=== PATIENT | female | born 1965 | race Caucasian/White ===

== ENCOUNTER 2018-06-03 17:13 | Emergency (ER) | payer MEDICARE, MEDICAID ==
[~2018-06-03] VITALS: Ht 157.5 cm; Wt 78.0 kg
[2018-06-03] MEDS ORDERED: ROBAXIN 750 MG750 M1 PO (19:12)
[2018-06-03 19:15] VITALS: BP 124/81
== END 2018-06-03 19:28 | disposition home or self-care (01) ==
LOC: M.ERS 17:13
DX: M79.604 Pain in right leg (principal); I10 Essential (primary) hypertension; E78.00 Pure hypercholesterolemia, unspecified

== ENCOUNTER 2018-10-18 09:29 | Emergency (ER) | payer MEDICARE, MEDICAID ==
[~2018-10-18] VITALS: Ht 157.5 cm; Wt 78.6 kg
[~2018-10-18 09:29] MED LIST: ROBAXIN 750 MG750 M1 PO
[2018-10-18] MEDS ORDERED: BLOOD PRESSURE MED (09:36)
[2018-10-18 10:06] LABS: ABSOLUTE BASOPHILS 0.1 thou/uL (0.0-0.2); ABSOLUTE EOSINOPHILS 0.2 thou/uL (0.0-0.7); ABSOLUTE LYMPHOCYTES 2.3 thou/uL (0.8-5.3); ABSOLUTE MONOCYTES 0.6 thou/uL (0.0-1.2); ABSOLUTE NEUTROPHILS 3.5 thou/uL (1.6-8.1); BASOPHILS 1.3 %; EOSINOPHILS 2.3 %; HEMATOCRIT 39.3 % (37.0-47.0); HEMOGLOBIN 13.5 gm/dL (12.0-15.0); LYMPHOCYTES 35.4 %; MCHC 34.3 g/dL (28.0-37.0); MCV 87.7 fL (80.0-100.0); MPV 8.7 fl. (7.2-11.1); NUCLEATED RBCS 0 /100WBC; PLATELET COUNT* 269 thou/uL (150-400); RBC 4.48 mil/uL (4.20-5.00); RDW-CV 13.2 % (10.5-14.5); WBC 6.6 thou/uL (4.0-11.0)
[2018-10-18 10:14] LABS: CALCIUM 9.4 mg/dL (8.5-10.1); CREATININE 0.7 mg/dL (0.6-1.3); POTASSIUM 3.7 mmol/L (3.5-5.1)
[2018-10-18 10:18] LABS: ALBUMIN 3.9 g/dL (3.4-5.0); TOTAL BILIRUBIN 0.4 mg/dL (<0.1-1.0); TOTAL PROTEIN 7.1 g/dL (6.4-8.2)
[2018-10-18] MEDS ORDERED: NORCO 5-325 TA1 EACH PO ×2 (10:42→13:34)
[2018-10-18 10:49] LABS: URINE BILIRUBIN NEGATIVE (Negative); URINE BLOOD 3+ (Negative); URINE CLARITY CLEAR; URINE COLOR YELLOW; URINE GLUCOSE-RANDOM 1+ (Negative); URINE KETONES NEGATIVE (Negative); URINE LEUKOCYTES-REFLEX NEGATIVE (Negative); URINE NITRITE-REFLEX NEGATIVE (Negative); URINE PROTEIN NEGATIVE (Negative); URINE UROBILINOGEN 0.2 E.U./dl (0.2-1.0)
[2018-10-18 10:56] LABS: BACTERIA-REFLEX 1-9 Few /HPF (None Seen); CASTS None Seen /LPF (None Seen); CRYSTALS None Seen /LPF (None Seen); MUCUS 0-3 Light strn/LPF (None Seen); SQUAMOUS 0-3 Few /LPF (0-3); URINE WBC-REFLEX 0-5 Rare /HPF (0-5)
[2018-10-18] MEDS ORDERED: ZOFRAN ODT4 MG PO (12:05)
[2018-10-18] MEDS ORDERED: TORADOL 10 MG T10 MG PO (12:05)
[2018-10-18] MEDS ORDERED: FLOMAX0.4 MG PO (12:05)
[2018-10-18 12:38] VITALS: BP 125/56
== END 2018-10-18 12:39 | disposition home or self-care (01) ==
LOC: M.ERS 09:29
PROVIDERS: Personal Emergency Response Attendant
DX: N13.2 Hydronephrosis with renal and ureteral calculous obstruction (principal); I10 Essential (primary) hypertension; E78.00 Pure hypercholesterolemia, unspecified; Z90.49 Acquired absence of other specified parts of digestive tract

== ENCOUNTER 2018-10-28 14:03 | Inpatient (IN) | payer MEDICARE, MEDICAID ==
[~2018-10-28] VITALS: Ht 165.1 cm; Wt 95.3 kg
--- NOTE | ~2018-10-28 | OP ---
[address] [address] OPERATIVE REPORT Name: IVETT LEVI Room: [address] IN .R.#: [id number] Admission: 10/28/18 Attend Phys: Ric August MD Discharge: Date of : 61 Report #: [id number] THIS REPORT FOR: //name// CC: Ric Acosta DATE OF SERVICE: 10/30/2018 PREOPERATIVE DIAGNOSIS: Left ureteral stone with hydronephrosis. POSTOPERATIVE DIAGNOSIS: Left ureteral stone with hydronephrosis. PROCEDURE PERFORMED: Cystoscopy, left retrograde pyelogram, ureteroscopy with laser lithotripsy and stent placement. SURGEON: Ramin Miguel MD ANESTHESIA: General. ESTIMATED BLOOD LOSS: Minimal. COMPLICATIONS: None. INDICATION FOR PROCEDURE: This is a 53-year-old female with a known left distal ureteral stone that she has been unable to pass over the past couple of weeks. She was scheduled with my partner to have ureteroscopy, laser lithotripsy and stent tomorrow; however, she has been having severe pain that is poorly controlled with narcotics and after discussing her options, she has elected to proceed with left ureteroscopy, laser lithotripsy and stent placement as soon as possible. The risks, benefits, possible complications were explained in detail to both she and her family, they had a chance to ask questions, which were answered to her satisfaction. They voiced clear understanding and would like to proceed. DESCRIPTION OF PROCEDURE: After obtaining informed consent, the patient was taken to the Operating Room and placed in supine position. After adequate general anesthesia and IV antibiotics, she was prepped and draped in the dorsal lithotomy position. A 21-Canadian cystoscope with 30-degree lens was introduced in the bladder. The bladder was systematically inspected. There were no stones, tumors, diverticula. The left ureteral orifice was cannulated with a 5-Canadian open-ended ureteral catheter. On book store associate imaging, there was no evidence of any stones overlying the left ureter; however, there was a large pelvic calcification consistent with a phlebolith. On retrograde, there was a normal caliber ureter for about 3 cm, at which point there was a small filling defect measuring about 4-5 mm and moderate proximal hydroureter. A sensor guidewire was passed in retrograde fashion. A rigid ureteroscopy [place] [address] OPERATIVE REPORT Name: IVETT LEVI Room: [address]#: [id number] Admission: 10/28/18 Attend Phys: Ric August MD Discharge: Date of : 61 Report #: [id number] alongside the wire into the distal ureter where the stone was identified. Using a 365 micron holmium laser fiber, stone was fragmented in multiple tiny fragments. The larger fragments were basketed and retrieved atraumatically through the ureter and passed off the table and sent to the lab for stone analysis. The ureter was examined up to the mid ureter with the rigid scope. There was no evidence of any other stones. No evidence of any ureteral injury. The scope was removed and a 4.8 x 28 cm double-J ureteral stent was passed over the wire under fluoroscopic guidance. A good coil was noted overlying the renal pelvis under fluoroscopy and a good coil was directly visualized in the bladder. The bladder was drained. Uro-Jet was applied per urethra and a B and O suppository was placed per rectum. The patient was extubated and taken to Recovery Room in good condition. The plan is to follow up in 1-2 weeks for stent removal. She may be dismissed home when stable from the hospitalist standpoint. By: [id number] [id number] Miguel MD /cruz
[~2018-10-28 14:03] MED LIST changes: +BLOOD PRESSURE MED; +FLOMAX0.4 MG PO; +NORCO 5-325 TA1 EACH PO; +TORADOL 10 MG T10 MG PO; +ZOFRAN ODT4 MG PO
[2018-10-28 14:21] VITALS: BP 136/71
[2018-10-28] MEDS ORDERED: ASPIR 8181 MG PO (14:36)
[2018-10-28] MEDS ORDERED: COZAAR 25 MG TA25 M2 PO (14:36)
[2018-10-28] MEDS ORDERED: DILTIAZEM 24HR180 M3 PO (14:36)
[2018-10-28] MEDS ORDERED: ISOSORBIDE MONO30 M1 PO (14:36)
[2018-10-28] MEDS ORDERED: LIPITOR40 MG PO (14:37)
[2018-10-28 14:54] LABS: ABSOLUTE BASOPHILS 0.1 thou/uL (0.0-0.2); ABSOLUTE EOSINOPHILS 0.1 thou/uL (0.0-0.7); ABSOLUTE LYMPHOCYTES 1.7 thou/uL (0.8-5.3); ABSOLUTE MONOCYTES 0.8 thou/uL (0.0-1.2); ABSOLUTE NEUTROPHILS 8.5 thou/uL (1.6-8.1); BASOPHILS 0.6 %; EOSINOPHILS 0.8 %; HEMATOCRIT 40.3 % (37.0-47.0); HEMOGLOBIN 13.6 gm/dL (12.0-15.0); LYMPHOCYTES 15.4 %; MCH 29.6 pg (26.0-34.0); MCHC 33.8 g/dL (28.0-37.0); MCV 87.5 fL (80.0-100.0); MONOCYTES 7.4 %; MPV 8.8 fl. (7.2-11.1); NUCLEATED RBCS 0 /100WBC; PLATELET COUNT* 258 thou/uL (150-400); POLYS 75.8 %; RBC 4.61 mil/uL (4.20-5.00); RDW-CV 13.9 % (10.5-14.5); WBC 11.2 thou/uL (4.0-11.0)
[2018-10-28 15:11] LABS: ALBUMIN 4.3 g/dL (3.4-5.0); ALKALINE PHOSPHATASE 81 U/L (46-116); ANION GAP 8 mmol/L (7-16); BUN 21 mg/dL (7-18); CALCIUM 9.7 mg/dL (8.5-10.1); CHLORIDE 101 mmol/L (98-107); CO2 30 mmol/L (21-32); CREATININE 0.8 mg/dL (0.6-1.3); GLUCOSE 115 mg/dL (70-99); POTASSIUM 4.1 mmol/L (3.5-5.1); SGOT 25 U/L (15-37); SGPT 35 U/L (30-65); SODIUM 139 mmol/L (136-145); TOTAL BILIRUBIN 0.5 mg/dL (<0.1-1.0); TOTAL PROTEIN 7.8 g/dL (6.4-8.2); TROPONIN-I LEVEL <0.06 ng/mL (<0.06)
[2018-10-28 16:01] LABS: URINE BILIRUBIN NEGATIVE (Negative); URINE BLOOD NEGATIVE (Negative); URINE CLARITY CLEAR; URINE COLOR YELLOW; URINE GLUCOSE-RANDOM NEGATIVE (Negative); URINE KETONES 1+ (Negative); URINE LEUKOCYTES-REFLEX NEGATIVE (Negative); URINE NITRITE-REFLEX NEGATIVE (Negative); URINE PROTEIN NEGATIVE (Negative); URINE SPECIFIC GRAVITY 1.025 (1.005-1.030); URINE UROBILINOGEN 0.2 E.U./dl (0.2-1.0)
[2018-10-28 20:08] VITALS: BP 126/84
[2018-10-28 21:00] VITALS: BP 106/56
[2018-10-29 05:27] LABS: ABSOLUTE EOSINOPHILS 0.1 thou/uL (0.0-0.7); ABSOLUTE LYMPHOCYTES 1.5 thou/uL (0.8-5.3); ABSOLUTE MONOCYTES 0.7 thou/uL (0.0-1.2); ABSOLUTE NEUTROPHILS 4.6 thou/uL (1.6-8.1); BASOPHILS 0.3 %; EOSINOPHILS 1.8 %; HEMATOCRIT 37.1 % (37.0-47.0); HEMOGLOBIN 12.5 gm/dL (12.0-15.0); LYMPHOCYTES 21.3 %; MCH 29.9 pg (26.0-34.0); MCHC 33.8 g/dL (28.0-37.0); MCV 88.4 fL (80.0-100.0); MONOCYTES 10.6 %; MPV 8.9 fl. (7.2-11.1); NUCLEATED RBCS 0 /100WBC; PLATELET COUNT* 220 thou/uL (150-400); RDW-CV 13.4 % (10.5-14.5)
[2018-10-29 05:41] LABS: CALCIUM 8.9 mg/dL (8.5-10.1); CREATININE 0.9 mg/dL (0.6-1.3); POTASSIUM 4.2 mmol/L (3.5-5.1)
--- NOTE | 2018-10-29 06:00 | NUR ---
PATIENT ADMITTED TO ROOM 308 AT APPROXIMATELY 2014. VSS ON RA. PAIN CONTROLLED WITH IV PAIN MEDICATION AND CHARTED. PATIENT ORIENTED TO ROOM AND POLICIES AND FALL EDUCATION GIVEN AND FALL AGREEMENT SIGNED. PATIENT VERBALIZED UNDERSTANDING. ADMISSION ASSESSMENT CHARTED. IV FLUIDS STARTED. IV IN LEFT AC-NS @100ML/HR. AT BEDSIDE. SEIZURE PRECAUTIONS IN PLACE AND FALL PRECAUTIONS IN PLACE. PATIENT INSTRUCTED TO USE CALL LIGHT WHEN NEEDING ASSISTANE. HOURLY ROUNDS MADE. WILL CONTINUE WITH PLAN OF CARE AND NURSING TO MONITOR.
[2018-10-29 07:20] VITALS: BP 125/70
[2018-10-29 17:13] VITALS: BP 103/40
--- NOTE | 2018-10-29 17:33 | NUR ---
ASSUMED CARE OF PATIENT AT APPROX 0730. ALERT AND ORIENTED X4. ASSESSMENT COMPLETED AND CHARTED. VSS ON ROOM AIR. NO COMPLAINTS OF NAUSEA OR SOA. PAIN HAS BEEN MANAGED WITH IV TORADOL AND HYDROCODONE THIS SHIFT. FLUIDS INFUSED ORDERED. PATIENT UP WITH SBA. HOURLY ROUNDS COMPLETED. CALL LIGHT WITHIN REACH. NURSING WILL CONTINUE TO MONITOR.
[2018-10-29 20:00] VITALS: BP 112/62
[2018-10-30 04:10] LABS: HEMATOCRIT 32.2 % (37.0-47.0); HEMOGLOBIN 10.9 gm/dL (12.0-15.0); MCHC 33.9 g/dL (28.0-37.0); MCV 88.7 fL (80.0-100.0); MPV 9.1 fl. (7.2-11.1); RBC 3.63 mil/uL (4.20-5.00); RDW-CV 13.7 % (10.5-14.5); WBC 5.6 thou/uL (4.0-11.0)
--- NOTE | 2018-10-30 04:30 | NUR ---
PT REMAINED A&Ox4 THROUGHOUT SHIFT. VITALS STABLE. NPO SINCE MIDNIGHT. PAIN CONTROLLED WITH NORCO AND TORADOL. IV IN L AC PATENT, INFUSING. URINE STRAINED, NO STONES FOUND. SEIZURE PRECAUTIONS IN PLACE. HOURLY ROUNDING COMPLETE. CALL LIGHT WITHIN REACH. WILL CONTINUE TO MONITOR.
[2018-10-30 04:33] LABS: CALCIUM 8.3 mg/dL (8.5-10.1); CREATININE 0.6 mg/dL (0.6-1.3); POTASSIUM 4.1 mmol/L (3.5-5.1)
[2018-10-30 08:30] VITALS: BP 116/78
[2018-10-30 08:40] VITALS: BP 116/78
--- NOTE | 2018-10-30 14:55 | CON ---
[address] [address] CONSULTATION Name: IVETT LEVI Room: [address] IN .R.#: [id number] Admission: 10/28/18 Attend Phys: Ric August MD Discharge: Date of : 61 Report #: [id number] THIS REPORT FOR: //name// CC: Ric Acosta DATE OF SERVICE: 10/29/2018 REASON FOR CONSULTATION: Left distal ureteral stone and flank pain. REFERRING PHYSICIAN: Ric August MD. CONSULTING PHYSICIAN: Ramin Miguel MD. HISTORY OF PRESENT ILLNESS: This is a 53-year-old female with a 2-week history of with left flank pain, severe at times, 10/10 on the pain scale. She has had some associated nausea and chills, but no fever. No diarrhea. She does have a history of kidney stones that she has passed spontaneously. She saw my partner, Dr. Hayden, on who had arranged for a left ureteroscopy, laser lithotripsy and stent placement on Wednesday, but her pain became so severe last night that she presented to the Emergency Room and was admitted for pain control. Currently, she rates her pain 8/10. She has no associated dysuria, hematuria, frequency or urgency. PAST MEDICAL HISTORY: Hypertension, TIA, seizures, history of head injury resulting in her seizure disorder, hypercholesterolemia, history of appendectomy, history of cholecystectomy. SOCIAL HISTORY: Nonsmoker. Denies drinking alcohol. ALLERGIES: No known drug allergies. MEDICATIONS: Flomax, Lamoure, losartan, aspirin, isosorbide mononitrate, atorvastatin and diltiazem. FAMILY HISTORY: Negative for kidney stones. REVIEW OF SYSTEMS: CONSTITUTIONAL: She denies any fevers. PSYCHIATRIC: She does have some chills when she has severe pain. GASTROINTESTINAL: She denies any diarrhea, but does have some nausea. GENITOURINARY: See HPI. All other systems reviewed and negative. PHYSICAL EXAMINATION: VITAL SIGNS: Temperature 36.7, heart rate 99, respiratory rate 17, [place] [address] CONSULTATION Name: TANNERJOSE DE JESUSIVETT Arcos Room: [address]#: [id number] Admission: 10/28/18 Attend Phys: Ric August MD Discharge: Date of : 61 Report #: [id number] pressure 106/56. GENERAL: Alert and oriented x 3, appears in no apparent distress despite stating that she has 8/10 pain. LUNGS: Clear to auscultation bilaterally. CARDIOVASCULAR: Regular rate and rhythm. HEENT: Normocephalic, atraumatic. NECK: Supple. ABDOMEN: Soft, nontender, nondistended. BACK: No CVA tenderness. GENITOURINARY: No bladder distention. EXTREMITIES: Full range of motion. SKIN: Warm, dry and intact. NEUROLOGIC: Cranial nerves 2-12 are intact. LABORATORY DATA: Urinalysis is negative for blood, negative for leukocytes. BMP: Sodium 140, potassium 4.2, BUN 17, creatinine 0.9, glucose 131, white blood cell count is 7, hemoglobin 12.5, glucose 220. CT scan of the abdomen and pelvis on 10/28/2018 reviewed the images, it shows a 3-4 mm left distal ureteral stone with moderate hydronephrosis. The stone was located about 1 cm proximal to the ureterovesical junction. There are no renal stones. ASSESSMENT AND PLAN: A 3-4 mm left distal ureteral stone with hydronephrosis and evidence of ureteral obstruction is likely the source of her flank pain. I had a long discussion with she and her , regarding her options of intervention while she is hospitalized versus monitoring her symptoms and controlling her pain with narcotics and continuing medical expulsive therapy until Wednesday, at which time she can undergo her planned scheduled procedure. At this point, she would like to see how she does today, and I recommend if she continues to require IV narcotics and is still hospitalized tomorrow that we plan to proceed with cystoscopy, left retrograde pyelogram, ureteroscopy with laser lithotripsy tomorrow. She can have a regular diet today. We will make her n.p.o. after midnight and continue to strain her urine. Thank you for this consult. We will continue to follow with you. <ELECTRONICALLY SIGNED> By: Ramin Miguel MD 10/30/18 1455 0833 [id number] Miguel MD /nt
[2018-10-30 15:47] VITALS: BP 102/54
--- NOTE | 2018-10-30 18:08 | NUR ---
ASSUMED CARE AT 0700. PT IN BED RESTING, ASKING IF SHE WILL HAVE SURGERY TODAY. RECEIVED CALL FROM DR. WELLS, PT WILL HAVE SURGERY TODAY AT 1300. PT TO [facility]. PT INFORMED 1240 PT TAKEN TO SURGERY. 1500 PT RETURNED FROM PACU. PT VS STABLE, UP TO TOILET WITH STAND BY ASSIST. PT REQUEST TO STAY ANOTHER NIGHT D/T HAVING A H/O SEIZURES. DR. CARMONA IS IN AGREEMENT. WILL CONT TO MONITOR. CALL LIGHT IN REACH
[2018-10-30 20:00] VITALS: BP 104/43
[2018-10-31 03:08] LABS: GLYCOHEMOGLOBIN (HGB A1C) 6.6 % (4.8-5.6)
--- NOTE | 2018-10-31 04:49 | NUR ---
PT REMAINED A&Ox4 THROUGHOUT SHIFT. IV IN L HAND PATENT, INFUSING. UP WITH ASSIST. PAIN CONTROLLED WITH TORADOL AND NORCO. DENIED NAUSEA. VITALS STABLE. DAUGHTER IN ROOM. CALL LIGHT WITHIN REACH. HOURLY ROUNDING COMPLETE. WILL CONTINUE TO MONITOR.
[2018-10-31 08:00] VITALS: BP 105/53
[2018-10-31 11:54] VITALS: BP 105/53
[2018-10-31] MEDS ORDERED: LEVSIN0.125 MG PO (12:12)
[2018-10-31] MEDS ORDERED: PERCOCET 5-3251 EACH PO (12:21)
[2018-10-31] MEDS ORDERED: PHENAZOPYRIDIN200 M2 PO (12:28)
[2018-10-31 14:16] VITALS: BP 105/53
--- NOTE | 2018-10-31 14:19 | NUR ---
PT ALERT AND ORIENTED X 4. ABDOMINAL PAIN MANAGED BY OXYCODONE. DENIES NAUSEA. IVF INFUSING IN AM. UP INDEOENDENTLY IN ROOM. FAMILY AT BEDSIDE. DISCHARGE INSTRUCTIONS GIVEN ALONG WITH PRESCRIPTIONS. IV REMOVED. PT ABLE TO AMBULATE WITH NURSING STAFF AND PERSONAL BELONGINGS TO LEAVE WITH FAMILY BY PRIVATE CAR @ 0949.
== END 2018-10-31 12:45 | disposition home or self-care (01) | DRG 661 ==
LOC: M.ERS 14:03 → M.3W 15:41 → M.TBA-ER 15:41 → M.3W 21:10
PROVIDERS: Physician Assistant; Urology; ADMIT Internal Medicine
PROC: BT1F1ZZ Fluoroscopy of Left Kidney, Ureter and Bladder using Low Osmolar Contrast (ICD-10-PCS; principal; 2018-10-30)
PROC: 0T778DZ Dilation of Left Ureter with Intraluminal Device, Via Natural or Artificial Opening Endoscopic (ICD-10-PCS; principal; 2018-10-30)
PROC: 0TC78ZZ Extirpation of Matter from Left Ureter, Via Natural or Artificial Opening Endoscopic (ICD-10-PCS; principal; 2018-10-30)
DX: N13.2 Hydronephrosis with renal and ureteral calculous obstruction (principal); I10 Essential (primary) hypertension; G40.909 Epilepsy, unspecified, not intractable, without status epilepticus; E78.00 Pure hypercholesterolemia, unspecified; Z87.442 Personal history of urinary calculi; Z87.820 Personal history of traumatic brain injury; Z90.49 Acquired absence of other specified parts of digestive tract; Z79.82 Long term (current) use of aspirin; Z79.899 Other long term (current) drug therapy

== ENCOUNTER 2019-06-27 15:12 | Emergency (ER) | payer MEDICARE, MEDICAID ==
[~2019-06-27] VITALS: Ht 157.5 cm; Wt 78.0 kg
[~2019-06-27 15:12] MED LIST changes: +ASPIR 8181 MG PO; +COZAAR 25 MG TA25 M2 PO; +DILTIAZEM 24HR180 M3 PO; +ISOSORBIDE MONO30 M1 PO; +LEVSIN0.125 MG PO; +LIPITOR40 MG PO; +PERCOCET 5-3251 EACH PO; +PHENAZOPYRIDIN200 M2 PO
[2019-06-27 16:50] LABS: INFLUENZA A ANTIGEN Negative (Negative)
[2019-06-27 16:51] LABS: INFLUENZA B ANTIGEN Negative (Negative)
[2019-06-27] MEDS ORDERED: MEDROLDOSEPACK PO (17:17)
[2019-06-27] MEDS ORDERED: PROMETH-CODEIN 65 ML PO (17:17)
[2019-06-27] MEDS ORDERED: AZITHROMYCIN500 MG PO (17:17)
[2019-06-27] MEDS ORDERED: VENTOLIN HFA 1818 GM INH (17:17)
[2019-06-27 17:25] VITALS: BP 158/82
== END 2019-06-27 17:26 | disposition home or self-care (01) ==
LOC: M.ERS 15:12
PROVIDERS: Nurse Practitioner Family
DX: J20.9 Acute bronchitis, unspecified (principal); R07.89 Other chest pain; I10 Essential (primary) hypertension; E78.00 Pure hypercholesterolemia, unspecified; Z90.49 Acquired absence of other specified parts of digestive tract

== ENCOUNTER 2019-11-26 10:58 | Inpatient (IN) | payer MEDICARE, MEDICAID ==
[~2019-11-26] VITALS: Ht 160 cm; Wt 81.2 kg
--- NOTE | ~2019-11-26 | CON ---
[address] [address] CONSULTATION Name: ESTELATeoIVETT MAZARIEGOS Room: [address] IN [facility]#: [id number] Admission: 11/26/19 Attend Phys: Arabella Heart Discharge: Date of : 61 Report #: [id number] THIS REPORT FOR: //name// cc: NANCY De La Rosa family physician/PCP NANCY - Estrella family physician/PCP ~ THIS REPORT FOR: //name// CC: NANCY physician/PCP Jake Holly DATE OF SERVICE: 11/27/2019 HISTORY OF PRESENT ILLNESS: This is a 54-year-old female patient who has multiple symptoms. She is admitted with respiratory symptoms and she believes she got exposed to coronavirus a few days ago. Neurology consultation is requested because of seizure. She has a poorly defined history of seizures. She indicates about 10 years ago, she fell down from the stairs. She described that as a traumatic brain injury. I am not certain how long she was unconscious. Since then she had what she described as seizure as well as TIA. She has been to [facility] and I do not have any of those records from [facility], but she indicates that over a period of time, MRIs were done on her and she believes they were negative. She was on Topamax and multiple psychiatric medications. She stopped taking all those about 2 years ago when her daughter was murdered because she did not care about the life. Presently, she is not on any medication and she said she had a seizure. She noticed a seizure because of incontinence she had. She is also having some trouble with right sided weakness and altered mental status. Those symptoms are also poorly defined. REVIEW OF SYSTEMS: A 14-point review of system was carried out is positive for respiratory symptoms. Previous episodes of what she described as TIA, leg pain, seizure. She is here for excluding the possibility of coronavirus infection. She is complaining of some leg pain. She feels depressed. She has a history of hypertension, hyperlipidemia and blood sugar. The best I can tell, she has a cholecystectomy in the past. This was her 14-point review of systems. She has multiple complaints in multiple systems. She does complain of some back pain, some systemic symptoms, but they are also poorly defined. She does have psychiatric issues. She denies any abdominal or symptoms. PAST MEDICAL HISTORY: Positive for seizure, but history is poorly defined. FAMILY HISTORY: Unremarkable. SOCIAL HISTORY: She drinks alcohol on special occasions. PHYSICAL EXAMINATION: Indicate she is alert, responsive, [place] [address] CONSULTATION Name: IVETT LEVI Josselyn Room: [address] IN ..#: [id number] Admission: 11/26/19 Attend Phys: Arabella Heart Discharge: Date of : 61 Report #: [id number] and complex command. It is difficult to carry out full examination because she is on enhanced isolation. Her speech looks intact and her memory and fund of knowledge looks intact. Cranial nerve examination 2-12 was carried out. I do not believe she has any focal abnormality, the best I can tell. Neuromuscular examination was done for strength, sensation, reflexes and tone and that appeared to be symmetrical. The pulses are palpable. She has no cerebellar sign. I could not look at the patient's fundus. Cardiac examinations appear unremarkable. It does not look like she is in marked respiratory distress. On my examination, her blood pressure is 114/67, respirations 16, pulse is 77, and temperature is 97.7. LABORATORY DATA: White count is normal at 6.4. Sodium is normal at 140. Even her magnesium was normal. She did have a CT scan of the head on admission that does not appear to be showing any definite abnormality. IMPRESSION: This patient has a longstanding history of seizures. It is not clear if those seizures are epileptic seizures or pseudoseizure. She will need further workup. We did not have all the equipment here. We did not have any prolonged EEG and I discussed that aspect with the patient. I will suggest getting an EEG done and she is already scheduled for MRI and if that is negative, we do not think we can do much here and she needs to go to an epileptologist either at [facility] or [facility]. We might put her on small dosages of Topamax if she wants to. This patient needs a psychiatric consult and a follow up because lot of her problem appeared to be psychiatric in issues. Thank you very much for this referral. By: 0914 [id number] Hobson MD /cruz
--- NOTE | ~2019-11-26 | EEG ---
[address] [address] EEG STUDY REPORT Name: IVETT LEVI Room: [address]#: [id number] Admission: 11/26/19 Attend Phys: Arabella Heart Discharge: 11/27/19 Date of : 61 Report #: [id number] THIS REPORT FOR: //name// CC: NANCY physician/PCP Jake Holly DATE OF SERVICE: 11/27/2019 This patient is being evaluated for a seizure disorder. EEG was done by placing the electrode by standard 10-20 system of electrode placement. Both referential and sequential montages were used for recording. Background activity in this patient's EEG is about 10 Hz and 30 microvolt. It is a symmetrical activity. Photic stimulation is unremarkable. This patient became drowsy and that is associated with bilateral slowing and vertex sharp waves. Throughout the record, no active epileptiform activity was noticed. IMPRESSION: This patient's EEG is within normal limits. It does not show any active epileptiform activity. By: 1209 [id number] Hobson MD /nt
[~2019-11-26 10:58] MED LIST changes: +AZITHROMYCIN500 MG PO; +MEDROLDOSEPACK PO; +PROMETH-CODEIN 65 ML PO; +VENTOLIN HFA 1818 GM INH
[2019-11-26 11:09] VITALS: BP 151/87
[2019-11-26 11:54] LABS: ABSOLUTE EOSINOPHILS 0.1 thou/uL (0.0-0.7); ABSOLUTE LYMPHOCYTES 2.4 thou/uL (0.8-5.3); ABSOLUTE MONOCYTES 0.5 thou/uL (0.0-1.2); ABSOLUTE NEUTROPHILS 2.6 thou/uL (1.6-8.1); BASOPHILS 0.7 %; EOSINOPHILS 2.3 %; HEMATOCRIT 39.9 % (37.0-47.0); HEMOGLOBIN 14.1 gm/dL (12.0-15.0); LYMPHOCYTES 42.7 %; MCH 30.3 pg (26.0-34.0); MCHC 35.3 g/dL (28.0-37.0); MCV 85.7 fL (80.0-100.0); MONOCYTES 8.4 %; MPV 8.6 fl. (7.2-11.1); NUCLEATED RBCS 0 /100WBC; PLATELET COUNT* 272 thou/uL (150-400); POLYS 45.9 %; RBC 4.66 mil/uL (4.20-5.00); RDW-CV 12.9 % (10.5-14.5); WBC 5.7 thou/uL (4.0-11.0)
[2019-11-26 12:11] LABS: CALCIUM 9.1 mg/dL (8.5-10.1); CREATININE 0.6 mg/dL (0.6-1.3); POTASSIUM 3.9 mmol/L (3.5-5.1)
[2019-11-26 12:29] LABS: MAGNESIUM 1.8 mg/dL (1.8-2.4); TOTAL BILIRUBIN 0.3 mg/dL (<0.1-1.0); TOTAL PROTEIN 7.4 g/dL (6.4-8.2)
--- NOTE | 2019-11-26 13:00 | NUR ---
PT STATES SHE IS CONCERNED THAT SHE HAS CORONAVIRUS " I WAS AT [facility] A FEW WEEKS AGO AND THERE WAS AN LADY THERE WHO DIDN'T SPEAK [place]. THEN A FEW DAYS LATER WE GOT SICK AT HOME." PT REPORTS FEVER EARLIER THIS WEEK. NO CURRENT SYMPTOMS SUCH COUGH,SOA OR FEVER
--- NOTE | 2019-11-26 15:15 | NUR ---
COVID 19 TEST SENT
[2019-11-26 16:00] VITALS: BP 152/93
--- NOTE | 2019-11-26 18:19 | NUR ---
PT VSS, REC FROM ER AROUND 1530, NSR ON TELE, ROOM AIR, SEIZURE PRECAUTIONS IN PLACE, COVID-19 RULE OUT PRECAUTIONS IN PLACE, STAND BY ASSIST DUE TO PT REPORTED SEIZURE ACTIVITY, HOURLY ROUNDING PERFORMED, POSSESSIONS AND CALL LIGHT WITHIN REACH.
[2019-11-26 20:30] VITALS: BP 133/67
--- NOTE | 2019-11-26 20:30 | NUR ---
RECEIVED REPORT AND ASSUMED CARE OF PT, ASSESSMENT COMPLETED. TELEMETRY ON SHOWING SR. NO COMPLAINTS VOICED. DISCUSSED BRP AND SAFETY. WILL CONT TO MONITOR AND ASSIST NEEDED.
[2019-11-27 00:30] VITALS: BP 114/67
[2019-11-27 04:55] LABS: HEMATOCRIT 36.6 % (37.0-47.0); HEMOGLOBIN 12.6 gm/dL (12.0-15.0); MCH 29.9 pg (26.0-34.0); MCHC 34.5 g/dL (28.0-37.0); MCV 86.5 fL (80.0-100.0); MPV 8.2 fl. (7.2-11.1); RBC 4.23 mil/uL (4.20-5.00); WBC 6.4 thou/uL (4.0-11.0)
[2019-11-27 05:20] LABS: ALBUMIN 3.3 g/dL (3.4-5.0); CALCIUM 8.1 mg/dL (8.5-10.1); CREATININE 0.6 mg/dL (0.6-1.3); POTASSIUM 4.1 mmol/L (3.5-5.1); TOTAL BILIRUBIN 0.3 mg/dL (<0.1-1.0); TOTAL PROTEIN 6.1 g/dL (6.4-8.2)
--- NOTE | 2019-11-27 05:51 | NUR ---
SLEPT WELL TONIGHT. INDEPENDENT BRP WITH STEADY GAIT. TELEMETRY CONT TO SHOW SR. NO CHANGE IN ASSESSMENT. REMAINS IN ISOLATION. HS GOALS OF REST AND SAFETY ACHIEVED.
[2019-11-27 08:00] VITALS: BP 119/78
--- NOTE | 2019-11-27 10:31 | EKG ---
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
[2019-11-27] MEDS ORDERED: TOPAMAX 100 MG100 MG PO (11:04)
[2019-11-27 12:00] VITALS: BP 116/73
[2019-11-27 15:12] VITALS: BP 119/78
--- NOTE | 2019-11-27 15:26 | NUR ---
PT VSS, A&OX4, NSR ON TELE, SEIZURE PRECAUTIONS- PATIENT UP AD TYRESE IN ROOM TO USE RESTROOM. ACCUCHECKS, HOURLY ROUNDING PERFORMED, POSSESSIONS AND CALL LIGHT WITHIN REACH.
[2019-11-27 16:00] VITALS: BP 121/78
--- NOTE | 2019-11-27 18:31 | NUR ---
PT A&OX4 VSS. PT HAS BEEN CONTINENT OF B/B THIS SHIFT. COVID-19 RESULTS PENDING. PT REMIANS ON SPECIAL PRECAUTIONS AT THIS TIME. PT TO MRI THIS AFTERNOON. RESULTS NEGATIVE. EEG ORDERED, DC TO HOME POENDING COMPLETION OF THIS EXAM. DRAFTING DETAILER AT PT BEDSIDE AT THIS TIME. PT IS ACCUCHECK. PT UP AD TYRESE, GAIT STEADY. SEIZURE PRECAUTIONS IN PLACE THIS SHIFT. PT ON 2 GM SODIUM DIET ORDERED. PT WILL BE CLEAR TO DC HOME ONCE EEG IS COMPLETED. FAMILY AND PT RIDE AWARE. WILL CONTINUE TO MONITOR.
--- NOTE | 2019-11-27 20:30 | NUR ---
PT DISCHARGED AT 1950. DISCHARGE INSTRUCTIONS REVIEWED WITH PATIENT INCLUDING MEDICATION LIST, NEW MEDICATION EDUCATION AND COVID-19 EDUCATION. PT VOICED UNDERSTANDING, NO QUESTIONS VOICED. PT DISCHARGED HOME VIA PRIVATE VEHICLE. TAKEN DOWNSTAIRS VIA WHEELCHAIR. HEART MONITOR D/C'D. IV CATHETER D/C'D AND INTACT.
[2019-11-28 02:07] LABS: GLYCOHEMOGLOBIN (HGB A1C) 7.3 % (4.8-5.6)
--- NOTE | 2019-11-28 09:06 | NUR ---
INFECTION PREVENTION: PATIENT NOTIFIED OF NEGATIVE COVID-19 RESULTS AT 09:05, 11/28/2019.
== END 2019-11-27 19:50 | disposition home or self-care (01) | DRG 101 ==
LOC: M.ERS 10:58 → M.TBA-ER 13:02 → M.ERS 13:02 → M.2W 13:13 → M.TBA-ER 13:13 → M.2W 15:35
PROVIDERS: Internal Medicine; Physician Assistant; ADMIT Internal Medicine
DX: R56.9 Unspecified convulsions (principal); Z20.828 Contact with and (suspected) exposure to other viral communicable diseases; I10 Essential (primary) hypertension; E78.5 Hyperlipidemia, unspecified; E11.9 Type 2 diabetes mellitus without complications; E78.00 Pure hypercholesterolemia, unspecified; Z86.73 Personal history of transient ischemic attack (TIA), and cerebral infarction without residual deficits; Z79.899 Other long term (current) drug therapy; Z90.49 Acquired absence of other specified parts of digestive tract; Z83.3 Family history of diabetes mellitus